=== PATIENT | male | born 1995 | race African-American/Black ===

== ENCOUNTER 2016-12-29 18:11 | Observation (INO) | payer MEDICAID ==
[~2016-12-29] VITALS: Ht 175.3 cm; Wt 68.0 kg
[2016-12-29 22:35] LABS: Albumin 4.8 g/dL (3.4-5.0); BUN/Creatinine Ratio 9.5; Calcium 9.3 mg/dL (8.5-10.1); Potassium 3.8 mmol/L (3.5-5.1)
[2016-12-29 22:37] LABS: Basophils # (auto) 0 uL; Basophils % (auto) 0.3 % (0.0-2.0); Eosinophils # (auto) 0 uL; Eosinophils % (auto) 0.4 % (0.0-7.0); Hemoglobin 17.3 g/dL (13.5-17.5); Lymphocytes % (auto) 21.9 % (10.0-50.0); Mean Corpuscular Hemoglobin 31.1 pg (28.0-32.0); Mean Corpuscular Hgb Conc. 33.9 g/dL (32.0-36.0); Mean Corpuscular Volume 91.6 fL (80.0-100.0); Mean Platelet Volume 9.3 fL (7.4-10.4); Monocytes # (auto) 0.6 uL; Monocytes % (auto) 6.7 % (0.0-12.0); Neutrophils # (auto) 6.3 uL; Neutrophils % (auto) 70.7 % (37.0-80.0); Platelet Count (auto) 175 10^3/uL (140-450); Red Cell Distribution Width 13.5 % (11.6-16.0)
[2016-12-29 22:38] LABS: Bilirubin, Total 0.9 mg/dL (0.2-1.0); Total Protein 8.5 g/dL (6.4-8.2)
[2016-12-30] MEDS ORDERED: LORazepam 0.5 MG TAB PO ONE (01:30)
[2016-12-30 04:56] LABS: Urine Bilirubin Negative (Negative); Urine Blood Negative /uL (Negative); Urine Color Yellow (Yellow); Urine Glucose Normal (Normal); Urine Mucus FEW (None Seen); Urine Nitrite Negative (Negative); Urine RBC 2 /hpf (0 - 3); Urine Urobilinogen Normal (Negative); Urine pH 5.5 (5.0-8.0)
[2016-12-30 04:57] LABS: Urine Ketone 3+ (Negative)
[2016-12-30 05:54] VITALS: BP 129/75
== END 2016-12-30 06:11 | disposition home or self-care (01) | DRG 760 ==
LOC: ER 18:16 → OVERFLOW 12-30 02:49 → ER 12-30 06:11
PROVIDERS: ADMIT Emergency Medicine; ATTEND Emergency Medicine
DX: F51.04 Psychophysiologic insomnia (principal); F41.9 Anxiety disorder, unspecified; R11.0 Nausea
CPT/HCPCS: 36415; 80053; 81001; 83690; 85025; G0378; G0434